=== PATIENT | female | born 1980 | race Caucasian/White ===

== ENCOUNTER 2017-07-31 11:48 | Emergency (ER) | payer MEDICAID ==
[~2017-07-31] VITALS: Ht 160 cm; Wt 84.4 kg
--- NOTE | 2017-07-31 12:00 | NUR ---
BIB PARTNER. C/O FISHER CHILLS X 2 DAYS. AAO4.
[2017-07-31] MEDS ORDERED: SUMATRIPTAN SUCCINATE 6 MG/0.5 ML VIAL SQ ONE ×2 (13:00→13:42)
[2017-07-31] MEDS ORDERED: IV NS 0.9% 1,000 ML BAG IV ONE (13:00)
[2017-07-31] MEDS ORDERED: PROCHLORPERAZINE EDISYLATE 10 MG/2 ML VIAL IV ONE (13:00)
[2017-07-31 13:12] LABS: BASOPHILS # (AUTO) 0.1 /CMM (0.0-0.2); BASOPHILS % (AUTO) 0.8 % (0.0-2.0); EOSINOPHILS # (AUTO) 0.3 /CMM (0.0-0.7); EOSINOPHILS % (AUTO) 2.8 % (0.0-6.0); HEMATOCRIT 44 % (33-45); LYMPHOCYTES # (AUTO) 2.2 /CMM (0.8-4.8); LYMPHOCYTES % (AUTO) 23.5 % (20.0-44.0); MEAN CORPUSCULAR HEMOGLOBIN 29 PG (26.0-33.0); MEAN CORPUSCULAR HGB CONC 34 g/dl (31.0-36.0); MEAN CORPUSCULAR VOLUME 86 fL (82-100); MONOCYTES # (AUTO) 0.5 /CMM (0.1-1.30); MONOCYTES % (AUTO) 5.1 % (2.0-12.0); NEUTROPHILS # (AUTO) 6.1 /CMM (1.8-8.9); NEUTROPHILS % (AUTO) 67.8 % (43.0-81.0); PLATELET COUNT (AUTO) 304 /CMM (150-450); RDW COEFFICIENT OF VARIATION 12.9 (11.5-15.0); RED BLOOD CELL COUNT(AUTO) 5.17 MIL/uL (4.0-5.2); WHITE BLOOD COUNT (AUTO) 9.2 K/uL (4.3-11.0)
[2017-07-31 13:23] LABS: CREATININE 0.8 mg/dL (0.6-1.3); POTASSIUM 4.2 mmol/L (3.5-5.1)
[2017-07-31] MEDS ORDERED: PROCHLORPERAZINE EDISYLATE 10 MG/2 ML VIAL ONE (13:42)
[2017-07-31 14:41] LABS: APPEARANCE,URINE Clear (CLEAR); BILIRUBIN,URINE Negative (NEGATIVE); BLOOD, URINE Small Ery/uL (NEGATIVE); COLOR,URINE Yellow (YELLOW); KETONES,URINE Negative (NEGATIVE); LEUKOCYTE ESTERASE ,URINE Trace (NEGATIVE); NITRITE, URINE Negative (NEGATIVE); PROTEIN,URINE Negative (NEGATIVE); UGLUCOSE Negative (NEGATIVE); UROBILINOGEN,URINE 0.2 EU/dL (0.2)
[2017-07-31 14:46] LABS: BACTERIA,URINE Few /HPF (None Seen); SQUAMOUS EPITHELIAL CELL,UR Few /HPF (None Seen)
--- NOTE | 2017-07-31 14:57 | NUR ---
D/C HOME W/ PARTNER. PT FEELING BETTER AFTER MIGRAINE MED IMITREX. AMBULATORY.
[2017-07-31 14:58] VITALS: BP 110/76
== END 2017-07-31 15:17 | disposition home or self-care (01) ==
LOC: ER 11:52
DX: G43.909 Migraine, unspecified, not intractable, without status migrainosus (principal)
CPT/HCPCS: 36415; 80048; 81001; 84703; 85025; 96361; 96372; 96374; 99284; A4606; J0780; J3030; J7030; Z7610; 81000-TC

== ENCOUNTER 2017-11-29 19:39 | Emergency (ER) | payer MEDICAID ==
[~2017-11-29] VITALS: Ht 160 cm; Wt 72.6 kg
--- NOTE | 2017-11-29 21:15 | NUR ---
PT BB SELF FROM HOME C/O "LOWER BACK PAIN SINCE THIS MORNING"; DENIES TRAUMA." -N/V/D. PT DENIES PAIN DURING URINATION. PT STATES RLA PAIN 05/13 SINCE MONRING. PT IS AAOX4. RESP EVEN AND UNLABORED. SKIN WNL. NO S/S OF ACUTE DISTRESS NOTED. PT GOWNED AND PLACED ON MONITOR AND POX. AWAITING MD FOR EVAL.
[2017-11-29] MEDS ORDERED: MORPHINE SULFATE INJ 4 MG/ML DISP.SYRIN ONE (21:58)
[2017-11-29] MEDS ORDERED: DEXAMETHASONE SOD PHOSPHATE 10 MG/ML VIAL ONE (21:58)
[2017-11-29] MEDS ORDERED: DEXAMETHASONE SOD PHOSPHATE 4 MG/ML VIAL IM ONE (22:00)
[2017-11-29] MEDS ORDERED: MORPHINE SULFATE INJ 2 MG/ML DISP.SYRIN IM ONE (22:00)
[2017-11-29 22:54] LABS: APPEARANCE,URINE CLEAR (CLEAR); BILIRUBIN,URINE NEGATIVE (NEGATIVE); BLOOD, URINE NEGATIVE Ery/uL (NEGATIVE); COLOR,URINE YELLOW (YELLOW); KETONES,URINE NEGATIVE (NEGATIVE); LEUKOCYTE ESTERASE ,URINE NEGATIVE (NEGATIVE); NITRITE, URINE NEGATIVE (NEGATIVE); PH,URINE 6.5 (5.0-8.0); PROTEIN,URINE NEGATIVE (NEGATIVE); UGLUCOSE NEGATIVE (NEGATIVE); UROBILINOGEN,URINE 0.2 EU/dL (0.2)
[2017-11-29 23:21] VITALS: BP 124/80
--- NOTE | 2017-11-29 23:22 | NUR ---
Patient discharged to home in stable condition. Written and verbal after care instructions given. Patient verbalizes understanding of instruction. Prescription given.
== END 2017-11-29 23:23 | disposition home or self-care (01) ==
LOC: ER 19:42
DX: M54.5 Low back pain (principal)
CPT/HCPCS: 81000-TC; 84703-TC; A4606; J1100; J2270; Z7610

== ENCOUNTER 2019-12-18 14:55 | Emergency (ER) | payer MEDICAID, OTHER ==
[~2019-12-18] VITALS: Ht 165.1 cm; Wt 38.6 kg
--- NOTE | 2019-12-18 15:24 | NUR ---
CAME IN FOR COUGH, CONGESTION, RUQ ABD PAIN, AND DIARRHEA X 3 DAYS, TO ER BED 18, PLACED ON ISOLATION. PROVIDED W MASK, CHANGEDT O HOSP GOWN, WARM BLABKET PROVIDED, AWAITING MD UPTON.
--- NOTE | 2019-12-18 15:34 | NUR ---
GARO PERDOMO AT BEDSIDE
[2019-12-18] MEDS ORDERED: ONDANSETRON 4 MG TAB.RAPDIS ONE (15:47)
[2019-12-18] MEDS ORDERED: ACETAMINOPHEN ES 500 MG TABLET ONE ×2 (15:47→22:25)
[2019-12-18] MEDS ORDERED: HYDROCODONE/APAP 5/325MG 1 EACH TABLET ONE (15:47)
[2019-12-18] MEDS ORDERED: ACETAMINOPHEN ES 500 MG TABLET PO ONE ×2 (16:00→23:00)
[2019-12-18] MEDS ORDERED: HYDROCODONE/APAP 5/325MG 1 EACH TABLET PO ONE (16:00)
[2019-12-18] MEDS ORDERED: ONDANSETRON 4 MG TAB.RAPDIS SL ONE (16:00)
--- NOTE | 2019-12-18 16:11 | NUR ---
COVID AND INFLUENZA SWAB DONE. SENT TO LAB
[2019-12-18 16:17] LABS: BASOPHILS # (AUTO) 0.1 /CMM (0.0-0.2); BASOPHILS % (AUTO) 0.9 % (0.0-2.0); HEMATOCRIT 49 % (33-45); HEMOGLOBIN 16.2 g/dL (11.5-14.8); LYMPHOCYTES # (AUTO) 1.7 /CMM (0.8-4.8); LYMPHOCYTES % (AUTO) 22.1 % (20.0-44.0); MEAN CORPUSCULAR HGB CONC 33 g/dl (31.0-36.0); MEAN CORPUSCULAR VOLUME 82 fL (82-100); MONOCYTES # (AUTO) 0.7 /CMM (0.1-1.30); MONOCYTES % (AUTO) 8.6 % (2.0-12.0); NEUTROPHILS # (AUTO) 5.3 /CMM (1.8-8.9); NEUTROPHILS % (AUTO) 67.4 % (43.0-81.0); PLATELET COUNT (AUTO) 255 /CMM (150-450); RED BLOOD CELL COUNT(AUTO) 5.99 MIL/uL (4.0-5.2); WHITE BLOOD COUNT (AUTO) 7.8 K/uL (4.3-11.0)
[2019-12-18 16:18] LABS: APPEARANCE,URINE Clear (CLEAR); BILIRUBIN,URINE Negative (NEGATIVE); BLOOD, URINE Negative Ery/uL (NEGATIVE); COLOR,URINE Yellow (YELLOW); KETONES,URINE Negative (NEGATIVE); LEUKOCYTE ESTERASE ,URINE Negative (NEGATIVE); NITRITE, URINE Negative (NEGATIVE); PROTEIN,URINE Negative (NEGATIVE); UGLUCOSE Negative (NEGATIVE); UROBILINOGEN,URINE 0.2 EU/dL (0.2)
[2019-12-18 16:24] LABS: CALCIUM, SERUM 8.9 mg/dL (8.5-10.1); CARBON DIOXIDE 27 mmol/L (21-32); CHLORIDE 101 mmol/L (98-107); CREATININE 0.8 mg/dL (0.6-1.3); GLUCOSE 74 mg/dL (74-106); POTASSIUM 3.8 mmol/L (3.5-5.1); SODIUM SERUM 139 mmol/L (136-145); UREA NITROGEN, BLOOD 6 mg/dL (7-18)
[2019-12-18 16:29] LABS: ALANINE AMINOTRANSFERASE 107 U/L (12-78); ALBUMIN 3.9 g/dL (3.4-5.0); ALKALINE PHOSPHATASE 158 U/L (46-116); ASPARTATE AMINOTRANSFERASE 59 U/L (15-37); BILIRUBIN,TOTAL 0.2 mg/dL (0.2-1.0); TOTAL PROTEIN, SERUM 8.2 g/dL (6.4-8.2)
[2019-12-18] MEDS ORDERED: IV NS 0.9% 1,000 ML BAG IV ONE (16:30)
--- NOTE | 2019-12-18 16:34 | NUR ---
CT SCAN ROOM FOR TERMINAL CLEANING. WILL TAKE 20MIN BEFORE PICKING UP PATIENT FOR CT SCAN. MADE GARO PERDOMO AWARE
[2019-12-18 17:19] LABS: C-REACTIVE PROTEIN 1.1 mg/dL (0.0-0.9); CREATINE KINASE, TOTAL 86 U/L (26-192); FERRITIN 85 ng/mL (8-388)
--- NOTE | 2019-12-18 17:23 | NUR ---
TERMINAL CLEANING NOT DONE YET PER RADIOLOGY DEPT. WILL FINISH IN 10MIN.
--- NOTE | 2019-12-18 17:40 | NUR ---
WHEELED OUT VIA GURNEY TO CT SCAN
[2019-12-18] MEDS ORDERED: IV NS 0.9% 250 ML IV ONE (17:41)
[2019-12-18] MEDS ORDERED: IOHEXOL-350 100 ML VIAL IV ONE (17:41)
[2019-12-18] MEDS ORDERED: CT SWABBABLE VALVE TRANS SET 1 EA INFUS.SET MC ONE (17:41)
[2019-12-18] MEDS ORDERED: AZITHROMYCIN 500 MG in IV D5W 250 ML IV ONE (19:00)
--- NOTE | 2019-12-18 19:11 | NUR ---
report given to cortez draper for adonay
[2019-12-18] MEDS ORDERED: AZITHROMYCIN 500 MG VIAL ONE (19:18)
--- NOTE | 2019-12-18 19:52 | NUR ---
CALLED [facility], CONRADOD JANIE DRAGSAW OPERATOR
--- NOTE | 2019-12-18 20:47 | NUR ---
FAXED CLINICALS TO [facility]
--- NOTE | 2019-12-18 22:05 | NUR ---
TRANSFER INFO: [facility] ROOM 105, RN FOR REPORT [phone] FISHER [facility] [phone]
--- NOTE | 2019-12-18 22:31 | NUR ---
PT COMPLAINED OF HEADACHE. MD MADE AWARE. VERBAL ORDER TO GIVEN TYLENOL 1000MG POX 1. NOTED AND CARRIED OUT
--- NOTE | 2019-12-18 22:59 | NUR ---
CALLED FOR REPORT BUT NURSE IS RECEIVING ANOTHER REPORT AT THIS TIME. WILL CALL BACK AGAIN
[2019-12-18 23:05] VITALS: BP 114/61
--- NOTE | 2019-12-18 23:24 | NUR ---
REPORT GIVEN TO CAROLA TROY FOR BRANDIE AT [facility]
--- NOTE | 2019-12-18 23:35 | NUR ---
[facility] AT BEDSIDE FOR TRANSPORT TO [facility]. REPORT GIVEN. PT IS IN STABLE CONDITION. NAD NOTED
== END 2019-12-18 23:39 | disposition short-term general hospital (02) ==
LOC: ER 14:55
DX: U07.1 COVID-19 (principal); J12.89 Other viral pneumonia; R74.0 Nonspecific elevation of levels of transaminase and lactic acid dehydrogenase [LDH]; M32.9 Systemic lupus erythematosus, unspecified; Z90.49 Acquired absence of other specified parts of digestive tract; K76.0 Fatty (change of) liver, not elsewhere classified
CPT/HCPCS: 36415; 71045; 71275; 74177; 80053; 81001; 82550; 82728; 83615; 84484; 84703; 85025; 85378; 86140; 87081; 87635; 87804; 96361; 96365; 99291; J0456; J7030; J7050; J7060; Q0162; Q9967; 81000-TC

== ENCOUNTER 2020-07-25 22:39 | Emergency (ER) | payer OTHER ==
[~2020-07-25] VITALS: Ht 162.6 cm; Wt 90.7 kg
[2020-07-25 23:28] VITALS: BP 139/87
--- NOTE | 2020-07-26 00:02 | NUR ---
URINE COLLECTED AND SENT TO LAB
[2020-07-26] MEDS ORDERED: FLUCONAZOLE (100 MG) 100 MG TABLET ONE (00:08)
[2020-07-26 00:09] LABS: BILIRUBIN,URINE NEGATIVE (NEGATIVE); BLOOD, URINE NEGATIVE Ery/uL (NEGATIVE); COLOR,URINE YELLOW (YELLOW); LEUKOCYTE ESTERASE ,URINE NEGATIVE (NEGATIVE); NITRITE, URINE NEGATIVE (NEGATIVE); PH,URINE 6.5 (5.0-8.0); PROTEIN,URINE NEGATIVE (NEGATIVE); UGLUCOSE NEGATIVE (NEGATIVE); UROBILINOGEN,URINE 0.2 EU/dL (0.2)
[2020-07-26] MEDS ORDERED: FLUCONAZOLE (100 MG) 100 MG TABLET PO ONE (00:30)
--- NOTE | 2020-07-26 00:45 | NUR ---
Patient discharged to home in stable condition. Written and verbal after care instructions given. Patient verbalizes understanding of instruction.
== END 2020-07-26 00:46 | disposition home or self-care (01) ==
LOC: ER 22:41
DX: B37.3 Candidiasis of vulva and vagina (principal); E11.9 Type 2 diabetes mellitus without complications; E66.01 Morbid (severe) obesity due to excess calories; Z68.34 Body mass index [BMI] 34.0-34.9, adult; Z90.49 Acquired absence of other specified parts of digestive tract
CPT/HCPCS: 81001; 82962-TC; 84703-TC

== ENCOUNTER 2020-09-22 16:21 | Emergency (ER) | payer OTHER ==
[~2020-09-22] VITALS: Ht 162.6 cm; Wt 90.7 kg
--- NOTE | 2020-09-22 16:40 | NUR ---
bib . c/o PELVIC PAIN SUDDEN ONSET X 20 MINS, VAGINAL BLEEDING WORST SINCE LAST NIGHT PT FEELING WEAK AND NUMB ALL OVER HER BODY.. VS CHECKED. IV ACCESS STARTED BLOOD DRAW DONE,. SENT TO LAB
[2020-09-22] MEDS ORDERED: ONDANSETRON HCL/PF 4 MG/2 ML VIAL ONE ×3 (16:51→18:58)
[2020-09-22] MEDS ORDERED: ONDANSETRON HCL/PF 4 MG/2 ML VIAL IVP ONE (17:00)
[2020-09-22] MEDS ORDERED: MORPHINE SULFATE INJ 2 MG/ML DISP.SYRIN IV ONE (17:00)
[2020-09-22] MEDS ORDERED: IV NS 0.9% 1,000 ML BAG IV ONE (17:00)
[2020-09-22] MEDS ORDERED: MORPHINE SULFATE INJ 4 MG/ML DISP.SYRIN ONE (17:01)
[2020-09-22 17:31] LABS: CALCIUM, SERUM 8.3 mg/dL (8.5-10.1); CREATININE 0.9 mg/dL (0.6-1.3); POTASSIUM 3.7 mmol/L (3.5-5.1)
[2020-09-22 18:12] LABS: BASOPHILS % (AUTO) 0.4 % (0.0-2.0); EOSINOPHILS % (AUTO) 2.3 % (0.0-6.0); HEMATOCRIT 28 % (33-45); HEMOGLOBIN 8.9 g/dL (11.5-14.8); LYMPHOCYTES # (AUTO) 1.4 /CMM (0.8-4.8); MEAN CORPUSCULAR HGB CONC 31 g/dl (31.0-36.0); MEAN CORPUSCULAR VOLUME 70 fL (82-100); MONOCYTES # (AUTO) 0.4 /CMM (0.1-1.30); MONOCYTES % (AUTO) 4.1 % (2.0-12.0); NEUTROPHILS % (AUTO) 79.2 % (43.0-81.0); PLATELET COUNT (AUTO) 375 /CMM (150-450); RED BLOOD CELL COUNT(AUTO) 4.05 MIL/uL (4.0-5.2); WHITE BLOOD COUNT (AUTO) 10.1 K/uL (4.3-11.0)
[2020-09-22] MEDS ORDERED: ELAG1CAP PO (18:53)
[2020-09-22] MEDS ORDERED: METF-440 PO (18:53)
[2020-09-22] MEDS ORDERED: FERR325T23 PO (18:53)
[2020-09-22] MEDS ORDERED: CALC500T52 PO (18:53)
[2020-09-22] MEDS ORDERED: CHOL100062 PO (18:53)
--- NOTE | 2020-09-22 18:56 | NUR ---
URINE COLLECTED SENT TO LAB
[2020-09-22] MEDS ORDERED: HYDROMORPHONE INJ 2 MG/ML DISP.SYRIN ONE (18:59)
[2020-09-22] MEDS ORDERED: ONDANSETRON HCL/PF 4 MG/2 ML VIAL IV ONE (19:00)
[2020-09-22] MEDS ORDERED: HYDROMORPHONE 1 MG/1 ML DISP.SYRIN IV ONE (19:00)
[2020-09-22 19:10] LABS: BILIRUBIN,URINE Negative (NEGATIVE); COLOR,URINE RED (YELLOW); LEUKOCYTE ESTERASE ,URINE Negative (NEGATIVE); NITRITE, URINE Negative (NEGATIVE); PROTEIN,URINE 100 mg/dl (NEGATIVE); UGLUCOSE Negative (NEGATIVE); UROBILINOGEN,URINE 0.2 EU/dL (0.2)
--- NOTE | 2020-09-22 19:15 | NUR ---
rec'd report from CAROLA Muller for adonay
--- NOTE | 2020-09-22 19:44 | NUR ---
sent covid swab to lab
--- NOTE | 2020-09-22 19:56 | NUR ---
[facility], [phone]
--- NOTE | 2020-09-22 20:16 | NUR ---
CALL FROM LAB. RAPID COVID NEGATIVE.
[2020-09-22 21:08] LABS: BACTERIA,URINE Few /HPF (None Seen); RBC,URINE TOO NUMEROUS TO COUN /HPF (0-2); SQUAMOUS EPITHELIAL CELL,UR Few /HPF (None Seen); WBC,URINE 0-2 /HPF (0-3)
--- NOTE | 2020-09-22 21:20 | NUR ---
pt signed blood transfusion consent form.
--- NOTE | 2020-09-22 23:40 | NUR ---
CALL FROM SIMBA SHIRLEY PT ACCEPTED TO [facility] BY DR SANTIZO. ROOM 861-2. # FOR REPORT [phone]. [facility]
--- NOTE | 2020-09-23 00:09 | NUR ---
Miguel A cervantes in ED - 09/23/20 at 0116 by FRANKI No adverse reaction noted. Pt resting comfortably with eyes closed after initial 15min of infusion.
--- NOTE | 2020-09-23 00:55 | NUR ---
rec'd blood from blood bank and verified compatibily with second RN. stared blood infusion at 0052.
[2020-09-23] MEDS ORDERED: ONDANSETRON HCL/PF - ER 4 MG/2 ML VIAL IV ONE (01:00)
[2020-09-23] MEDS ORDERED: HYDROMORPHONE 1 MG/1 ML DISP.SYRIN IV ONE (01:00)
--- NOTE | 2020-09-23 01:09 | NUR ---
No adverse reaction noted. Pt resting comfortably with eyes closed after initial 15min of infusion.
[2020-09-23 01:15] VITALS: BP 124/68
--- NOTE | 2020-09-23 01:23 | NUR ---
called [facility] and gave report to CAROLA Gee for adonay
[2020-09-23] MEDS ORDERED: ONDANSETRON HCL/PF 4 MG/2 ML VIAL ONE (01:40)
[2020-09-23] MEDS ORDERED: HYDROMORPHONE 1 MG/1 ML DISP.SYRIN ONE (01:41)
--- NOTE | 2020-09-23 02:09 | NUR ---
Ems arrived and transferred pt onto their gurney. Report and transfer documentation given to EMT
--- NOTE | 2020-09-23 02:10 | NUR ---
Miguel A cervantes in ED - 09/23/20 at 0238 by FRANKI EMS arrived and transferred pt onto their gurney. Report and transfer documents given to emt.
== END 2020-09-23 02:10 | disposition short-term general hospital (02) ==
LOC: ER 16:22
DX: D50.0 Iron deficiency anemia secondary to blood loss (chronic) (principal); N93.9 Abnormal uterine and vaginal bleeding, unspecified; D25.0 Submucous leiomyoma of uterus; R55 Syncope and collapse; K76.0 Fatty (change of) liver, not elsewhere classified; K42.9 Umbilical hernia without obstruction or gangrene; K40.20 Bilateral inguinal hernia, without obstruction or gangrene, not specified as recurrent; Z20.822 Contact with and (suspected) exposure to COVID-19; Z90.49 Acquired absence of other specified parts of digestive tract; M32.9 Systemic lupus erythematosus, unspecified; E11.65 Type 2 diabetes mellitus with hyperglycemia; Z79.84 Long term (current) use of oral hypoglycemic drugs
CPT/HCPCS: 36415; 36430; 74176; 76856; 80048; 81001; 84702; 85025; 86850; 86923; 87081; 87426; 96361; 96374; 96375; 96376 ×2; 99285; C9803; J1170 ×2; J2270; J2405 ×5; J7030 ×2; J7040; P9016

== ENCOUNTER 2020-12-02 20:45 | Emergency (ER) | payer OTHER ==
[~2020-12-02] VITALS: Ht 162.6 cm; Wt 93.9 kg
[~2020-12-02 20:45] MED LIST: CALC500T52 PO; CHOL100062 PO; ELAG1CAP PO; FERR325T23 PO; METF-440 PO
--- NOTE | 2020-12-02 21:05 | NUR ---
PT BIBSELF C/O OF LEFT SIDED STERNAL [id number]. PT AAOX4 BREATHING EVENLY AND UNLABORED. PT STATES " I WAS WATCHING TV AND THE PRESSURE JUST STARTED." PT SKIN IS WARM, DRY, AND INTACT. MD AT BEDSIDE. PT ATTACHED TO MONITOR AND POX. PT GIVEN BLANKET AND CALL LIGHT WITHIN REACH. WILL CONTINUE TO MONITOR.
[2020-12-02] MEDS ORDERED: MECLIZINE HCL 25 MG TABLET ONE (21:14)
[2020-12-02] MEDS: MECLIZINE HCL 12.5 MG TABLET PO ONE (21:15)
[2020-12-02] MEDS ORDERED: MECL-159 PO (21:23)
--- NOTE | 2020-12-02 21:24 | NUR ---
LAB AT BEDSIDE
[2020-12-02 21:30] LABS: BASOPHILS # (AUTO) 0.1 /CMM (0.0-0.2); BASOPHILS % (AUTO) 0.6 % (0.0-2.0); EOSINOPHILS % (AUTO) 2.8 % (0.0-6.0); HEMATOCRIT 39 % (33-45); HEMOGLOBIN 12.3 g/dL (11.5-14.8); LYMPHOCYTES # (AUTO) 2.4 /CMM (0.8-4.8); MEAN CORPUSCULAR HGB CONC 32 g/dl (31.0-36.0); MEAN CORPUSCULAR VOLUME 75 fL (82-100); MONOCYTES % (AUTO) 8.5 % (2.0-12.0); NEUTROPHILS # (AUTO) 7.6 /CMM (1.8-8.9); NEUTROPHILS % (AUTO) 67.1 % (43.0-81.0); PLATELET COUNT (AUTO) 350 /CMM (150-450); RED BLOOD CELL COUNT(AUTO) 5.14 MIL/uL (4.0-5.2); WHITE BLOOD COUNT (AUTO) 11.3 K/uL (4.3-11.0)
--- NOTE | 2020-12-02 21:30 | NUR ---
XRAY AT BEDSIDE
--- NOTE | 2020-12-02 21:44 | NUR ---
URINE SENT TO LAB
[2020-12-02 21:46] LABS: CALCIUM, SERUM 7.8 mg/dL (8.5-10.1); CARBON DIOXIDE 26 mmol/L (21-32); CHLORIDE 106 mmol/L (98-107); CREATININE 0.7 mg/dL (0.6-1.3); GLUCOSE 120 mg/dL (74-106); POTASSIUM 4.2 mmol/L (3.5-5.1); SODIUM SERUM 141 mmol/L (136-145); UREA NITROGEN, BLOOD 11 mg/dL (7-18)
[2020-12-02 21:52] LABS: ALANINE AMINOTRANSFERASE 80 U/L (12-78); ALBUMIN 3.4 g/dL (3.4-5.0); ALKALINE PHOSPHATASE 109 U/L (46-116); ASPARTATE AMINOTRANSFERASE 47 U/L (15-37); BILIRUBIN,DIRECT 0.1 mg/dL (0.0-0.2); BILIRUBIN,TOTAL 0.2 mg/dL (0.2-1.0)
[2020-12-02 21:59] LABS: BILIRUBIN,URINE Negative (NEGATIVE); COLOR,URINE YELLOW (YELLOW); LEUKOCYTE ESTERASE ,URINE Negative (NEGATIVE); NITRITE, URINE Negative (NEGATIVE); PH,URINE 7.5 (5.0-8.0); PROTEIN,URINE Negative (NEGATIVE); UGLUCOSE Negative (NEGATIVE); UROBILINOGEN,URINE 0.2 EU/dL (0.2)
--- NOTE | 2020-12-02 22:09 | NUR ---
Patient discharged to home in stable condition. Written and verbal after care instructions given. Patient verbalizes understanding of instruction. Pt ambulatory with a steady gait
[2020-12-02 22:17] VITALS: BP 129/88
== END 2020-12-02 22:09 | disposition home or self-care (01) ==
LOC: ER 20:51
DX: R42 Dizziness and giddiness (principal); R53.1 Weakness; R07.89 Other chest pain; E11.9 Type 2 diabetes mellitus without complications; Z90.49 Acquired absence of other specified parts of digestive tract; Z79.84 Long term (current) use of oral hypoglycemic drugs; Z79.899 Other long term (current) drug therapy
CPT/HCPCS: 36415; 71045; 80048; 80076; 81003; 84484; 84703; 85025; 99284; J8597

== ENCOUNTER 2021-01-30 20:07 | Emergency (ER) | payer OTHER ==
[~2021-01-30] VITALS: Ht 160 cm; Wt 90.7 kg
[~2021-01-30 20:07] MED LIST changes: +MECL-159 PO
[2021-01-30] MEDS ORDERED: IV NS 0.9% 1,000 ML BAG IV ONE (20:30)
--- NOTE | 2021-01-30 20:39 | NUR ---
BIB MOM FOR C/O SYNCOPAL EPISODE AT HOME. PER PT SHE'S BEEN HAVING VAGINAL BLEEDING "FOR THE PAST COUPLE MONTHS". PT AAOX4, VSS. RR EVEN & UNLABORED. DENIES CP, SOB, N/V AT THIS TIME. PT SEEN & EVAL'D BY DR. MULLINS. WILL CONT TO MONITOR.
[2021-01-30 20:40] LABS: BASOPHILS # (AUTO) 0.1 /CMM (0.0-0.2); BASOPHILS % (AUTO) 0.7 % (0.0-2.0); HEMATOCRIT 25 % (33-45); LYMPHOCYTES # (AUTO) 2.1 /CMM (0.8-4.8); LYMPHOCYTES % (AUTO) 23.4 % (20.0-44.0); MEAN CORPUSCULAR HGB CONC 32 g/dl (31.0-36.0); MEAN CORPUSCULAR VOLUME 72 fL (82-100); MONOCYTES # (AUTO) 0.6 /CMM (0.1-1.30); MONOCYTES % (AUTO) 6.5 % (2.0-12.0); NEUTROPHILS # (AUTO) 6.2 /CMM (1.8-8.9); NEUTROPHILS % (AUTO) 67.4 % (43.0-81.0); PLATELET COUNT (AUTO) 348 /CMM (150-450); WHITE BLOOD COUNT (AUTO) 9.2 K/uL (4.3-11.0)
[2021-01-30 20:53] LABS: CARBON DIOXIDE 24 mmol/L (21-32); CHLORIDE 109 mmol/L (98-107); CREATININE 0.8 mg/dL (0.6-1.3); GLUCOSE 109 mg/dL (74-106); SODIUM SERUM 145 mmol/L (136-145); UREA NITROGEN, BLOOD 7 mg/dL (7-18)
--- NOTE | 2021-01-30 20:56 | NUR ---
CALLED FOR COVID SWAB
[2021-01-30] MEDS ORDERED: ACETAMINOPHEN 325 MG TABLET PO ONE (21:00)
[2021-01-30] MEDS ORDERED: ACETAMINOPHEN 325 MG TABLET ONE (21:03)
[2021-01-30 21:15] LABS: BAND % (MANUAL) 1 % (0.0-5.0); EOSINOPHILS % (MANUAL) 2 % (0-4); LYMPHOCYTES % (MANUAL) 19 % (16-48); MONOCYTES % (MANUAL) 7 % (0-11.0); NEUTROPHILS % (MANUAL) 71 (42-76)
[2021-01-30] MEDS ORDERED: HYDROMORPHONE 1 MG/1 ML DISP.SYRIN ONE (22:44)
[2021-01-30] MEDS ORDERED: ONDANSETRON 4 MG TAB.RAPDIS ONE (22:44)
--- NOTE | 2021-01-30 22:50 | NUR ---
MEDICATED FOR PAIN PER ERMD ORDER, PT JORDAN WELL.
[2021-01-30] MEDS ORDERED: HYDROMORPHONE 1 MG/1 ML DISP.SYRIN IV ONE (23:00)
[2021-01-30] MEDS ORDERED: ONDANSETRON 4 MG TAB.RAPDIS SL ONE (23:00)
--- NOTE | 2021-01-30 23:20 | NUR ---
BLOOD TRANSFUSION INITIATED AT 2315, PT JORDAN WELL. VSS. DENIES CP, SOB, DIZZINESS, N/V, FEVER AT THIS TIME. WILL CONT TO MONITOR.
[2021-01-31] MEDS ORDERED: HYDROMORPHONE 1 MG/1 ML DISP.SYRIN ONE (00:11)
[2021-01-31] MEDS ORDERED: HYDROMORPHONE 1 MG/1 ML DISP.SYRIN IV ONE (00:30)
--- NOTE | 2021-01-31 03:00 | NUR ---
REC'D A CALL FROM [facility] FOLLOWING TRANSFER INFO: PT GOT ACCEPTED AT [facility] [place]. ROOM 2423. CAROLA AMOS. # FOR REPORT: [phone]. [facility] ETA IN ONE HOUR
--- NOTE | 2021-01-31 03:08 | NUR ---
REPORT GIVEN TO DECEMBER CAROLA FOR BRANDIE. Addendum: 01/31/21 at 0308 by GALE ORION SRIVASTAVA FROM [facility]
[2021-01-31 03:51] VITALS: BP 122/78
--- NOTE | 2021-01-31 04:18 | NUR ---
REPORT GIVEN TO TRANSPORT TEAM FOR BRANDIE. AND TRANSFERRING RESPONSIBILITIES.
== END 2021-01-31 04:19 | disposition short-term general hospital (02) ==
LOC: ER 20:08
DX: R55 Syncope and collapse (principal); D50.0 Iron deficiency anemia secondary to blood loss (chronic); D25.9 Leiomyoma of uterus, unspecified; N93.9 Abnormal uterine and vaginal bleeding, unspecified; Z90.49 Acquired absence of other specified parts of digestive tract; M32.9 Systemic lupus erythematosus, unspecified; E11.9 Type 2 diabetes mellitus without complications; Z79.84 Long term (current) use of oral hypoglycemic drugs; Z20.822 Contact with and (suspected) exposure to COVID-19; R03.0 Elevated blood-pressure reading, without diagnosis of hypertension
CPT/HCPCS: 36415; 36430; 71045; 76856; 80048; 82962; 83880; 84484; 85007; 85025; 86850; 86923; 87081; 87426; 96361; 96374; 96376; 99291; C9803; J1170 ×2; J7030; J7050; Q0162; P9016

== ENCOUNTER 2021-06-01 19:03 | Emergency (ER) | payer OTHER ==
[~2021-06-01] VITALS: Ht 162.6 cm; Wt 89.4 kg
--- NOTE | 2021-06-01 19:40 | NUR ---
PT BIBSELF C/O DIZZINESS AND NAUSEA. PT AAOX4 BREATHING EVENLY AND UNLABORED. PT DENIES PAIN AND DESCRIBES THE DIZZINESS "LIKE BEING ON A BOAT". PT ATTACHED TO MONITOR AND POX. PA AT BEDSIDE FOR EVAL. PT GIVEN BLANKET AND CALL LIGHT WITHIN REACH
[2021-06-01] MEDS ORDERED: MECLIZINE HCL 25 MG TABLET ONE (20:05)
--- NOTE | 2021-06-01 20:10 | NUR ---
URINE COLLECTED, SENT TO LAB.
--- NOTE | 2021-06-01 20:17 | NUR ---
BLOOD SENT TO LAB
[2021-06-01 20:21] LABS: BASOPHILS # (AUTO) 0.2 K/uL (0.0-0.2); BASOPHILS % (AUTO) 1.7 % (0.0-2.0); EOSINOPHILS % (AUTO) 1.9 % (0.0-6.0); HEMATOCRIT 44 % (33-45); HEMOGLOBIN 13.7 g/dL (11.5-14.8); LYMPHOCYTES # (AUTO) 1.6 K/uL (0.8-4.8); LYMPHOCYTES % (AUTO) 12.5 % (20.0-44.0); MEAN CORPUSCULAR HGB CONC 32 g/dl (31.0-36.0); MEAN CORPUSCULAR VOLUME 76 fL (82-100); MONOCYTES # (AUTO) 0.8 K/uL (0.1-1.30); MONOCYTES % (AUTO) 6.5 % (2.0-12.0); NEUTROPHILS # (AUTO) 9.6 K/uL (1.8-8.9); NEUTROPHILS % (AUTO) 77.4 % (43.0-81.0); PLATELET COUNT (AUTO) 333 K/uL (150-450); WHITE BLOOD COUNT (AUTO) 12.4 K/uL (4.3-11.0)
[2021-06-01 20:25] LABS: BILIRUBIN,URINE Negative (NEGATIVE); COLOR,URINE YELLOW (YELLOW); LEUKOCYTE ESTERASE ,URINE Negative (NEGATIVE); NITRITE, URINE Negative (NEGATIVE); PROTEIN,URINE Negative (NEGATIVE); UGLUCOSE Negative (NEGATIVE); UROBILINOGEN,URINE 0.2 EU/dL (0.2)
[2021-06-01 20:28] LABS: CALCIUM, SERUM 8.2 mg/dL (8.5-10.1); CREATININE 0.7 mg/dL (0.6-1.3)
[2021-06-01] MEDS ORDERED: MECLIZINE HCL 25 MG TABLET PO ONE (20:30)
[2021-06-01] MEDS ORDERED: IV NS 0.9% 1,000 ML BAG IV ONE (20:30)
[2021-06-01] MEDS ORDERED: MECL-159 PO (21:58)
--- NOTE | 2021-06-01 22:01 | NUR ---
Patient discharged to home in stable condition. Written and verbal after care instructions given. Patient verbalizes understanding of instruction. IV removed. Catheter intact and site benign. Pressure and 4x4 applied to site. No bleeding noted. Pt ambulatory with a steady gait
[2021-06-01 22:05] VITALS: BP 120/78
== END 2021-06-01 22:01 | disposition home or self-care (01) ==
LOC: ER 19:10
DX: R42 Dizziness and giddiness (principal); E11.9 Type 2 diabetes mellitus without complications; D64.9 Anemia, unspecified; M32.9 Systemic lupus erythematosus, unspecified; Z90.49 Acquired absence of other specified parts of digestive tract; Z98.890 Other specified postprocedural states; Z79.899 Other long term (current) drug therapy; Z79.84 Long term (current) use of oral hypoglycemic drugs
CPT/HCPCS: 36415; 80048; 81003; 84484; 85025; 93005; 96360; 99284; J7030; J8597

== ENCOUNTER 2023-09-06 03:23 | Emergency (ER) | payer SELFPAY ==
[~2023-09-06] VITALS: Ht 162.6 cm; Wt 92.1 kg
[2023-09-06] MEDS ORDERED: SUMATRIPTAN SUCCINATE 6 MG/0.5 ML VIAL SQ ONE ×2 (04:30→04:43)
[2023-09-06] MEDS ORDERED: diphenhydrAMINE HCL 50 MG/ML VIAL IV ONE (04:30)
[2023-09-06] MEDS ORDERED: KETOROLAC TROMETHAMINE 15 MG/ML VIAL IV ONE (04:30)
[2023-09-06] MEDS ORDERED: METOCLOPRAMIDE HCL 10 MG/2 ML VIAL IV ONE (04:30)
[2023-09-06] MEDS ORDERED: IV NS 0.9% 1,000 ML BAG IV ONE (04:30)
[2023-09-06] MEDS ORDERED: diphenhydrAMINE HCL 50 MG/ML VIAL ONE (04:43)
[2023-09-06] MEDS ORDERED: KETOROLAC TROMETHAMINE 15 MG/ML VIAL ONE (04:43)
[2023-09-06] MEDS ORDERED: METOCLOPRAMIDE HCL 10 MG/2 ML VIAL ONE (04:44)
[2023-09-06] MEDS ORDERED: METO-295 PO (05:20)
[2023-09-06] MEDS ORDERED: SUMA100T16 PO (05:20)
[2023-09-06] MEDS ORDERED: KETO10TA2 PO (05:20)
[2023-09-06 05:51] VITALS: BP 130/88; TEMP 98; O2SAT 97
== END 2023-09-06 05:52 | disposition home or self-care (01) ==
LOC: ER 03:31
DX: U07.1 COVID-19 (principal); G43.909 Migraine, unspecified, not intractable, without status migrainosus; E11.9 Type 2 diabetes mellitus without complications; Z90.49 Acquired absence of other specified parts of digestive tract; Z79.84 Long term (current) use of oral hypoglycemic drugs; Z79.899 Other long term (current) drug therapy; Z20.822 Contact with and (suspected) exposure to COVID-19
CPT/HCPCS: 99284; 96374; 96361; 96375 ×2; 87426; 87804 ×2; 96372; J1200; J3030; J2765; J7030; J1885

== ENCOUNTER 2023-12-24 17:36 | Emergency (ER) | payer MEDICAID ==
[~2023-12-24] VITALS: Ht 162.6 cm; Wt 92.1 kg
[~2023-12-24 17:36] MED LIST changes: +KETO10TA2 PO; +METO-295 PO; +SUMA100T16 PO
[2023-12-24] MEDS ORDERED: PRED50TA PO (19:12)
[2023-12-24] MEDS ORDERED: HYDR-500 PO (19:12)
[2023-12-24] MEDS ORDERED: predniSONE 20 MG TABLET ONE (19:15)
[2023-12-24] MEDS: predniSONE 50 MG TABLET PO ONE (19:16)
[2023-12-24 19:21] VITALS: BP 134/80; TEMP 98.3; O2SAT 96
== END 2023-12-24 19:22 | disposition home or self-care (01) ==
LOC: ER 17:45
DX: R21 Rash and other nonspecific skin eruption (principal); E11.9 Type 2 diabetes mellitus without complications; Z90.49 Acquired absence of other specified parts of digestive tract; Z79.899 Other long term (current) drug therapy
CPT/HCPCS: 99283; J7512

== ENCOUNTER 2023-12-31 04:30 | Emergency (ER) | payer MEDICAID ==
[~2023-12-31] VITALS: Ht 160 cm; Wt 93.0 kg
[~2023-12-31 04:30] MED LIST changes: +HYDR-500 PO; +PRED50TA PO
[2023-12-31 05:01] VITALS: BP 142/80; TEMP 98.8; O2SAT 96
[2023-12-31] MEDS ORDERED: PRED50TA PO (05:04)
[2023-12-31] MEDS ORDERED: TRIA80OI TP (05:04)
== END 2023-12-31 05:12 | disposition home or self-care (01) ==
LOC: ER 04:33
DX: R21 Rash and other nonspecific skin eruption (principal); Z90.49 Acquired absence of other specified parts of digestive tract; Z79.899 Other long term (current) drug therapy
CPT/HCPCS: 82962-TC

== ENCOUNTER 2024-09-15 04:27 | Emergency (ER) | payer MEDICAID, OTHER ==
[~2024-09-15] VITALS: Ht 154.9 cm; Wt 96.2 kg
[~2024-09-15 04:27] MED LIST changes: +TRIA80OI TP
[2024-09-15] MEDS ORDERED: MAG HYDROX/AL HYDROX/SIMETH 30 ML UDC ONE (06:24)
[2024-09-15] MEDS ORDERED: LIDOCAINE VISCOUS 2% UD 15 ML UDC ONE (06:24)
[2024-09-15] MEDS ORDERED: ONDANSETRON HCL/PF 4 MG/2 ML VIAL ONE (06:24)
[2024-09-15] MEDS ORDERED: MORPHINE SULFATE INJ 4 MG/ML DISP.SYRIN ONE (06:25)
[2024-09-15] MEDS: MAG HYDROX/AL HYDROX/SIMETH 30 ML UDC PO ONE (06:26)
[2024-09-15] MEDS: MORPHINE SULFATE INJ 2 MG/ML DISP.SYRIN IV ONE ×2 (06:26→09:52)
[2024-09-15] MEDS: LIDOCAINE VISCOUS 2% UD 15 ML UDC MM ONE (06:26)
[2024-09-15] MEDS: IV NS 0.9% 1,000 ML BAG IV ONE (06:26)
[2024-09-15] MEDS: ONDANSETRON HCL/PF 4 MG/2 ML VIAL IVP ONE (06:26)
[2024-09-15 06:43] LABS: BASOPHILS % (AUTO) 0.2 % (0.0-2.0); EOSINOPHILS # (AUTO) 0.2 K/uL (0.0-0.7); EOSINOPHILS % (AUTO) 1.6 % (0.0-6.0); HEMATOCRIT 44 % (33-45); LYMPHOCYTES # (AUTO) 0.6 K/uL (0.8-4.8); LYMPHOCYTES % (AUTO) 4.9 % (20.0-44.0); MEAN CORPUSCULAR HEMOGLOBIN 29 PG (26.0-33.0); MEAN CORPUSCULAR HGB CONC 34 g/dl (31.0-36.0); MEAN CORPUSCULAR VOLUME 86 fL (82-100); MONOCYTES # (AUTO) 0.5 K/uL (0.1-1.30); MONOCYTES % (AUTO) 3.9 % (2.0-12.0); NEUTROPHILS # (AUTO) 10.7 K/uL (1.8-8.9); NEUTROPHILS % (AUTO) 89.4 % (43.0-81.0); PLATELET COUNT (AUTO) 247 K/uL (150-450); RED BLOOD CELL COUNT(AUTO) 5.19 MIL/uL (4.0-5.2); RED CELL DISTRIBUTION WIDTH 13.7 % (11.5-15.0)
[2024-09-15 07:09] LABS: ALANINE AMINOTRANSFERASE 61 U/L (12-78); ALBUMIN 3.5 g/dL (3.4-5.0); ALKALINE PHOSPHATASE 109 U/L (46-116); BILIRUBIN,TOTAL 0.8 mg/dL (0.2-1.0); CALCIUM, SERUM 8.4 mg/dL (8.5-10.1); CARBON DIOXIDE 28 mmol/L (21-32); CHLORIDE 105 mmol/L (98-107); CREATININE 0.8 mg/dL (0.6-1.3); GLUCOSE 157 mg/dL (74-106); POTASSIUM 4.4 mmol/L (3.5-5.1); SODIUM SERUM 138 mmol/L (136-145); TOTAL PROTEIN, SERUM 7.2 g/dL (6.4-8.2); UREA NITROGEN, BLOOD 10 mg/dL (7-18)
[2024-09-15 07:22] LABS: ASPARTATE AMINOTRANSFERASE 10 U/L (15-37)
[2024-09-15 07:28] LABS: LIPASE < 10 U/L (16-77)
[2024-09-15 08:20] LABS: APPEARANCE,URINE CLEAR (CLEAR); BILIRUBIN,URINE NEGATIVE (NEGATIVE); BLOOD, URINE NEGATIVE Ery/uL (NEGATIVE); COLOR,URINE YELLOW (YELLOW); KETONES,URINE NEGATIVE (NEGATIVE); LEUKOCYTE ESTERASE ,URINE NEGATIVE (NEGATIVE); NITRITE, URINE NEGATIVE (NEGATIVE); PH,URINE 6.5 (5.0-8.0); PROTEIN,URINE NEGATIVE (NEGATIVE); UGLUCOSE NEGATIVE (NEGATIVE); UROBILINOGEN,URINE 0.2 EU/dL (0.2)
[2024-09-15 08:21] LABS: PREGNANCY TEST URINE QUAL NEGATIVE (NEGATIVE)
[2024-09-15] MEDS: IV LR 1000 ML 1,000 ML BAG IV ONE (08:33)
[2024-09-15] MEDS ORDERED: CT SWABBABLE VALVE TRANS SET 1 EA INFUS.SET MC ONE (09:08)
[2024-09-15] MEDS ORDERED: IOHEXOL-300 100 ML VIAL IV ONE (09:08)
[2024-09-15] MEDS ORDERED: IV NS 0.9% 250 ML IV ONE (09:09)
[2024-09-15] MEDS ORDERED: MORPHINE SULFATE INJ 2 MG/ML DISP.SYRIN ONE (09:51)
[2024-09-15] MEDS ORDERED: DICYCLOMINE HCL 10 MG CAPSULE PO ONE (09:51)
[2024-09-15] MEDS: DICYCLOMINE HCL 10 MG CAPSULE PO ONE (09:53)
[2024-09-15] MEDS: IV LR 500 ML IV ONE (10:38)
[2024-09-15] MEDS ORDERED: DICY10CA37 PO (11:04)
[2024-09-15] MEDS ORDERED: FAMO-131 PO (11:04)
[2024-09-15] MEDS ORDERED: ONDA4TAB5 PO (11:04)
[2024-09-15 12:28] VITALS: BP 100/59; TEMP 98.5; O2SAT 98
== END 2024-09-15 12:28 | disposition home or self-care (01) ==
LOC: ER 04:29
DX: R10.12 Left upper quadrant pain (principal); R11.10 Vomiting, unspecified; R19.7 Diarrhea, unspecified; E11.9 Type 2 diabetes mellitus without complications; Z79.52 Long term (current) use of systemic steroids; Z79.84 Long term (current) use of oral hypoglycemic drugs; Z90.49 Acquired absence of other specified parts of digestive tract; Z87.19 Personal history of other diseases of the digestive system
CPT/HCPCS: 99285; 74177; 96374; 96361; 96375; 96376; 85025; 83690; 84703; 81003; 36415; 80053; J2270 ×2; J2405; J7120 ×3; J7030; J7050; Q9967